=== PATIENT | male | born 1985 | race Caucasian/White ===

== ENCOUNTER 2018-12-30 09:55 | Outpatient (REF) | payer MEDICAID, SELFPAY ==
[2018-12-30 22:44] LABS: ALT 27 U/L (16-63); AST 18 U/L (15-37); Albumin 4.4 g/dL (3.4-5.0); Alkaline Phosphatase 78 U/L (46-116); Anion Gap 10.3 mmol/L (3-11); BUN 13 mg/dL (7-18); Bilirubin, Total 0.5 mg/dL (0.2-1.0); CO2 27.7 mmol/L (21.0-32.0); CREATININE 0.74 mg/dL (0.70-1.30); Calcium 9.3 mg/dL (8.5-10.1); Calculated LDL 130 mg/dL; Chloride 103 mmol/L (98-107); Cholesterol 182 mg/dL (50-200); Glucose 84 mg/dL (70-100); HDL Cholesterol 46 mg/dL (40-60); Potassium 4.2 mmol/L (3.5-5.1); Sodium 141 mmol/L (136-145); Total Protein 7.3 g/dL (6.4-8.2); Triglyceride 32 mg/dL (30-150)
== END 2018-12-30 10:15 ==
LOC: NCHCN 09:55
PROVIDERS: PCP Family Medicine; Visit Provider Family Medicine
DX: R03.0 Elevated blood-pressure reading, without diagnosis of hypertension (principal); N45.1 Epididymitis; Z13.220 Encounter for screening for lipoid disorders; Z00.00 Encounter for general adult medical examination without abnormal findings
CPT/HCPCS: 80053; 80061

== ENCOUNTER 2019-03-12 15:23 | Outpatient (REF) | payer MEDICAID, SELFPAY | END 2019-03-12 15:43 | LOC: NCHCN 15:23 | PROVIDERS: PCP Family Medicine; Visit Provider Family Medicine | DX: N39.0 Urinary tract infection, site not specified (principal) | CPT/HCPCS: 87086 ==

== ENCOUNTER 2019-09-03 02:23 | Outpatient (CLI) | payer MEDICAID, SELFPAY ==
--- NOTE | 2019-09-03 11:23 | DI.US_ITS ---
EXAM: US SCROTUM CLINICAL HISTORY: RT EPIDIDYMITIS, N45.1,RECURRENT PAIN RT TESTICLE. TECHNIQUE: Scrotal ultrasound performed using grayscale, color-flow and spectral Doppler analysis. COMPARISON: No exams were available for comparison FINDINGS: Right testicle: 4.6 x 2.5 x 3.0 cm Left testicle: 4.3 x 2.6 x 2.8 cm Echogenicity: Normal. Contour: Smooth. Mass: None seen. Microlithiasis: None. Hydrocele: None. Variocele: Slight prominence of the veins with Valsalva on the left. The vessel diameter measures le ss than 3 millimeters.. Hernia: No peristalsing bowel loop identified. Epididymis: Normal. Bilateral epididymal appendages is are seen. DOPPLER: Color: Symmetric and uniform, no hyperemia. Duplex: Bilateral testicular arterial waveforms visualized. IMPRESSION: No evidence of epididymitis. Question of a borderline left varicocele. Normal appearing bilateral t esticles. DATA REPOSITORY:
== END 2019-09-03 02:43 ==
PROVIDERS: PCP Family Medicine; Visit Provider Internal Medicine
DX: N45.1 Epididymitis (principal); N50.811 Right testicular pain; I86.1 Scrotal varices
CPT/HCPCS: 76870

== ENCOUNTER → 2023-01-21 01:45 | Outpatient (CLI) | payer MEDICAID, SELFPAY ==
--- NOTE | 2023-01-21 10:54 | DI.US_ITS ---
Exam(s) US SCROTUM EXAM: US SCROTUM CLINICAL HISTORY: RT TESTICULAR PAIN, N50.811, TIMES 5 DAYS TECHNIQUE: Ultrasound of the testes performed using grayscale, color, and Doppler imaging. COMPARISON: US US SCROTUM from 09/03/2019 FINDINGS: RIGHT HEMISCROTUM: The right testicle exhibits normal size and echo architecture with no evidence of intratesticular mas s. Vascular flow was demonstrated within the right testicle, including arterial waveforms. The epididymis appears unremarkable. There are no epididymal head cysts. There is a small-moderate size right hydrocele. No varicocele. LEFT HEMISCROTUM: The left testicle exhibits normal size and echo architecture with no evidence of intratesticular mass . Vascular flow is demonstrated within the left testicle, including arterial waveforms. The epididymis appears unremarkable. There are no epididymal head cysts. Small left-sided hydrocele. No varicocele. IMPRESSION: 1. No evidence of testicular mass nor testicular torsion. 2. Small bilateral hydroceles noted, right larger than left. 3. No varicoceles evident DATA REPOSITORY:
== END ==
PROVIDERS: PCP Family Medicine; Visit Provider Nurse Practitioner Family
DX: N50.811 Right testicular pain (principal); N50.89 Other specified disorders of the male genital organs
CPT/HCPCS: 76870

== ENCOUNTER 2024-01-28 09:02 | Outpatient (REF) | payer MEDICAID, SELFPAY ==
[2024-01-28 15:22] LABS: Calculated LDL 132 mg/dL (<100); Cholesterol 191 mg/dL (<200); HDL Cholesterol 51 mg/dL (40-60); Triglyceride 42 mg/dL (<150)
[2024-02-02 12:14] LABS: Testosterone, Total 500 ng/dL (240-950)
== END 2024-01-28 09:03 | disposition home or self-care (01) ==
LOC: NCHCN 09:02
PROVIDERS: PCP Family Medicine; Visit Provider Nurse Practitioner Family
DX: E78.5 Hyperlipidemia, unspecified (principal); R68.82 Decreased libido
CPT/HCPCS: 80061; 84403